=== PATIENT | female | born 1975 | race Caucasian/White ===

== ENCOUNTER 2017-10-08 12:52 | Emergency (ER) | payer OTHER ==
[~2017-10-08] VITALS: Ht 170.1 cm; Wt 104.3 kg
[~2017-10-08 12:52] MED LIST: ACIPHEX20 MG PO; ANAPROX DS550 MG PO; ANTIVERT25 MG PO; Aciphex20 MG PO; CLARITIN10 MG PO; CLEOCIN HCL300 MG PO; DARVOCET N 1001 TAB PO; FIORICET 325 MG1 TAB PO; FLEXERIL10 MG PO; HYDROCODONE BIT1 T11 PO; KEFLEX500 MG PO; MEDROL DOSEPAK4 MG PO; Motrin,Rufen800 MG PO; NAPROSYN500 MG PO; TOBRADEX 0.1%-0.5 ML OPH; ULTRAM50 MG PO; ZITHROMAX Z PA250 MG PO
[2017-10-08 12:59] VITALS: BP 136/95
[2017-10-08] MEDS ORDERED: ZITHROMAX250 MG PO (14:41)
[2017-10-08] MEDS ORDERED: MEDROL DOSEPAK4 MG PO (14:41)
[2017-10-08] MEDS ORDERED: TESSALON PERLE100 M1 PO (14:41)
== END 2017-10-08 14:43 | disposition home or self-care (01) ==
LOC: ED 12:52
DX: J20.9 Acute bronchitis, unspecified (principal); M19.011 Primary osteoarthritis, right shoulder; Z98.51 Tubal ligation status; Z90.49 Acquired absence of other specified parts of digestive tract

== ENCOUNTER 2017-10-16 16:43 | Inpatient (IN) | payer OTHER ==
[~2017-10-16] VITALS: Ht 170.1 cm; Wt 104.3 kg
[~2017-10-16 16:43] MED LIST changes: +TESSALON PERLE100 M1 PO; +ZITHROMAX250 MG PO
[2017-10-16 16:52] VITALS: BP 153/94
[2017-10-16 17:02] LABS: BASO % 0.4 % (0.0-1.0); EOS # 0.1 10*3/uL (0.0-0.4); EOS % 0.9 % (1.0-4.0); HEMATOCRIT 40.3 % (37.0-47.0); HEMOGLOBIN 13.6 g/dl (12.0-16.0); LYMPH # 2.1 10*3/uL (1.3-4.4); LYMPH % 22.1 % (27.0-41.0); MEAN CELL VOLUME 96.6 fl (81.0-99.0); MEAN CORPUSCULAR HGB 32.6 pg (27.0-31.0); MEAN CORPUSCULAR HGB CONC 33.7 g/dl (33.0-37.0); MEAN PLATELET VOLUME 9.7 fl (9.6-12.3); MONO # 0.6 10*3/uL (0.1-1.0); MONO % 6.6 % (3.0-9.0); NEUT # 6.8 10*3/uL (2.3-7.9); NEUT % 69.7 % (47.0-73.0); PLATELET COUNT AUTOMATED 254 10*3/uL (130-400); RED BLOOD COUNT 4.17 10*6/uL (4.10-5.10); RED CELL DISTRI WIDTH 13.1 % (0-14.5); WHITE BLOOD COUNT 9.7 10*3/uL (4.8-10.8)
[2017-10-16 17:12] LABS: ACT PARTIAL THROMBO TIME 24.4 SECONDS (20.8-31.5)
[2017-10-16 17:18] LABS: ALBUMIN 3.6 gm/dl (3.1-4.5); ALKALINE PHOSPHATASE 80 U/L (45-117); BUN 8 mg/dl (7-24); CHLORIDE 105 mmol/L (98-107); CREATININE 0.67 mg/dL (0.55-1.02); POTASSIUM 3.8 mmol/L (3.5-5.1); SGOT/AST 28 IU/L (3-35); SGPT/ALT 58 U/L (12-78); SODIUM 139 mmol/L (136-145); TOTAL PROTEIN 7.3 gm/dL (6.4-8.2)
[2017-10-16 17:29] LABS: TROPONIN I 0.142 ng/ml (<0.045)
[2017-10-16 17:30] VITALS: BP 143/81
[2017-10-16 18:00] VITALS: BP 137/88
[2017-10-16 20:00] VITALS: BP 144/88
[2017-10-17] VITALS: BP 102/56; BP 122/83; BP 98/51
[2017-10-17 07:42] LABS: BASO # 0.1 10*3/uL (0.0-0.1); BASO % 0.7 % (0.0-1.0); EOS # 0.1 10*3/uL (0.0-0.4); EOS % 1.5 % (1.0-4.0); HEMATOCRIT 37.6 % (37.0-47.0); HEMOGLOBIN 12.4 g/dl (12.0-16.0); LYMPH # 1.9 10*3/uL (1.3-4.4); LYMPH % 28.3 % (27.0-41.0); MEAN CELL VOLUME 98.9 fl (81.0-99.0); MEAN CORPUSCULAR HGB 32.6 pg (27.0-31.0); MEAN PLATELET VOLUME 10.2 fl (9.6-12.3); MONO # 0.6 10*3/uL (0.1-1.0); MONO % 8.7 % (3.0-9.0); NEUT % 60.5 % (47.0-73.0); PLATELET COUNT AUTOMATED 230 10*3/uL (130-400); RED CELL DISTRI WIDTH 13.2 % (0-14.5); WHITE BLOOD COUNT 6.7 10*3/uL (4.8-10.8)
[2017-10-17 08:00] VITALS: BP 131/88
[2017-10-17 08:26] LABS: ALBUMIN 3.2 gm/dl (3.1-4.5); BUN 12 mg/dl (7-24); CHLORIDE 103 mmol/L (98-107); CHOLESTEROL 162 mg/dL (<200); CREATININE 0.75 mg/dL (0.55-1.02); PHOSPHOROUS 3.9 mg/dL (2.5-4.9); POTASSIUM 3.8 mmol/L (3.5-5.1); SGOT/AST 42 IU/L (3-35); SGPT/ALT 57 U/L (12-78); SODIUM 140 mmol/L (136-145); TRIGLYCERIDES 232 mg/dl (<150); VLDL CHOLESTEROL 46 mg/dL (6-40)
[2017-10-17 08:34] LABS: ALKALINE PHOSPHATASE 75 U/L (45-117); HDL CHOLESTEROL 44 mg/dl (40-60); LDL CHOLESTEROL 72 mg/dL (9-159); TOTAL PROTEIN 6.2 gm/dL (6.4-8.2)
[2017-10-17 08:59] LABS: VITAMIN D, 25-HYDROXY 10.9 ng/mL (30-100)
[2017-10-17 12:00] VITALS: BP 133/80
[2017-10-17 16:00] VITALS: BP 99/65
[2017-10-17 18:48] VITALS: BP 124/88
[2017-10-17 20:00] VITALS: BP 110/54
[2017-10-18] VITALS: BP 120/81
[2017-10-18 08:00] VITALS: BP 104/63; BP 110/58
[2017-10-18 12:00] VITALS: BP 114/60
[2017-10-18 16:11] VITALS: BP 115/66
[2017-10-18] MEDS ORDERED: ENOXAPARIN100 MG/1 M SC (16:36)
[2017-10-18] MEDS ORDERED: ASPIRIN325 MG PO (16:37)
[2017-10-18] MEDS ORDERED: LISINOPRIL2.5 MG PO (16:37)
[2017-10-18] MEDS ORDERED: METOPROLOL TART50 M1 PO (16:37)
[2017-10-18] MEDS ORDERED: NITRO-BID1 GM T (16:37)
[2017-10-18] MEDS ORDERED: ATORVASTATIN CA80 M1 PO (16:37)
[2017-10-18] MEDS ORDERED: VITAMIN D5000 UNI1 PO (16:37)
[2017-10-18 20:02] VITALS: BP 114/65
[2017-10-19] VITALS: BP 110/63; BP 122/71
[2017-10-19 04:00] VITALS: BP 123/75
== END 2017-10-19 05:05 | disposition short-term general hospital (02) | DRG 281 ==
LOC: ED 16:43 → 4E 17:49 → EDHOLD 17:49 → 4E 18:04
PROVIDERS: Family Medicine; Student in an Organized Health Care Education/Training Program
DX: I21.4 Non-ST elevation (NSTEMI) myocardial infarction (principal); J98.11 Atelectasis; E83.41 Hypermagnesemia; M19.011 Primary osteoarthritis, right shoulder; L25.9 Unspecified contact dermatitis, unspecified cause; L81.8 Other specified disorders of pigmentation; Z98.51 Tubal ligation status; Z90.49 Acquired absence of other specified parts of digestive tract; Z83.3 Family history of diabetes mellitus; Z82.49 Family history of ischemic heart disease and other diseases of the circulatory system

== ENCOUNTER 2018-05-08 19:47 | Emergency (ER) | payer OTHER ==
[~2018-05-08] VITALS: Ht 170.1 cm; Wt 104.3 kg
[~2018-05-08 19:47] MED LIST changes: +ASPIRIN325 MG PO; +ATORVASTATIN CA80 M1 PO; +ENOXAPARIN100 MG/1 M SC; +LISINOPRIL2.5 MG PO; +METOPROLOL TART50 M1 PO; +NITRO-BID1 GM T; +VITAMIN D5000 UNI1 PO
[2018-05-08 19:49] VITALS: BP 139/82
[2018-05-08] MEDS ORDERED: PREDNISONE10 MG PO (19:57)
[2018-05-13] MEDS ORDERED: SEPTDS PO (16:43)
[2018-05-14] MEDS ORDERED: PREDNISONE10 MG PO (12:26)
== END 2018-05-08 22:12 | disposition home or self-care (01) ==
LOC: ED 19:47
DX: L30.9 Dermatitis, unspecified (principal); R03.0 Elevated blood-pressure reading, without diagnosis of hypertension; Z79.899 Other long term (current) drug therapy; Z79.82 Long term (current) use of aspirin

== ENCOUNTER → 2021-04-25 | Outpatient (CLI) | payer OTHER ==
[~2021-04-25] MED LIST changes: +PREDNISONE10 MG PO; +SEPTDS PO
== END | disposition home or self-care (01) ==
LOC: MAMMO 11:26
PROVIDERS: ATTEND Nurse Practitioner Women's Health
DX: Z12.31 Encounter for screening mammogram for malignant neoplasm of breast (principal)

== ENCOUNTER → 2021-05-02 | Outpatient (CLI) | payer OTHER | END | disposition home or self-care (01) | LOC: CARD 11:25 | PROVIDERS: ATTEND Nurse Practitioner Family | DX: I25.2 Old myocardial infarction (principal) ==

== ENCOUNTER → 2021-09-26 | Outpatient (CLI) | payer OTHER | END | disposition home or self-care (01) | LOC: RAD 09:28 | PROVIDERS: ATTEND Nurse Practitioner Family | DX: N39.3 Stress incontinence (female) (male) (principal); R31.9 Hematuria, unspecified; D64.9 Anemia, unspecified; E66.9 Obesity, unspecified; F32.A Depression, unspecified ==

== ENCOUNTER → 2022-06-12 | Outpatient (CLI) | payer OTHER | END | disposition home or self-care (01) | LOC: MAMMO 09:21 | PROVIDERS: ATTEND Nurse Practitioner Family | DX: Z12.31 Encounter for screening mammogram for malignant neoplasm of breast (principal) ==

== ENCOUNTER → 2022-06-25 | Outpatient (CLI) | payer OTHER ==
[~2022-06-25] MED LIST changes: +HYDROXYZINE PAM25 M1 PO; +NIACOR500 MG PO; +OMEPRAZOLE20 M3 PO; +OXYBUTYNIN10 MG PO; +PROZAC40 M1 PO; +VITAMIN D350 MCG PO
== END | disposition home or self-care (01) ==
LOC: US 14:06
PROVIDERS: ATTEND Nurse Practitioner Family
DX: R92.8 Other abnormal and inconclusive findings on diagnostic imaging of breast (principal)

== ENCOUNTER → 2022-06-27 | Day surgery (SDC) | payer OTHER ==
[~2022-06-27] VITALS: Ht 170.1 cm; Wt 113.4 kg
[2022-06-27 07:03] VITALS: BP 132/87
[2022-06-27 07:54] VITALS: BP 112/75
[2022-06-27 08:09] VITALS: BP 123/75
[2022-06-27 08:24] VITALS: BP 127/83
== END | disposition home or self-care (01) ==
LOC: SDC 06-23 13:15
PROVIDERS: ATTEND Surgery
DX: Z12.11 Encounter for screening for malignant neoplasm of colon (principal); D12.4 Benign neoplasm of descending colon; D12.8 Benign neoplasm of rectum; K57.30 Diverticulosis of large intestine without perforation or abscess without bleeding; I25.2 Old myocardial infarction; M19.90 Unspecified osteoarthritis, unspecified site; K21.9 Gastro-esophageal reflux disease without esophagitis; F41.9 Anxiety disorder, unspecified; Z90.49 Acquired absence of other specified parts of digestive tract; Z79.899 Other long term (current) drug therapy

== ENCOUNTER 2022-11-10 21:38 | Emergency (ER) | payer OTHER ==
[~2022-11-10] VITALS: Ht 170.1 cm; Wt 108.9 kg
[2022-11-10 21:43] VITALS: BP 141/102
== END 2022-11-10 23:13 | disposition home or self-care (01) ==
LOC: ED 21:38
DX: S51.812A Laceration without foreign body of left forearm, initial encounter (principal); Z98.51 Tubal ligation status; Z90.49 Acquired absence of other specified parts of digestive tract; Z98.890 Other specified postprocedural states; W01.198A Fall on same level from slipping, tripping and stumbling with subsequent striking against other object, initial encounter; Y93.01 Activity, walking, marching and hiking; Y92.009 Unspecified place in unspecified non-institutional (private) residence as the place of occurrence of the external cause; Y99.8 Other external cause status